=== PATIENT | female | born 1990 | race Caucasian/White ===

== ENCOUNTER 2021-04-27 20:21 | Emergency (ER) | payer MEDICAID ==
[2021-04-27 20:39] VITALS: BP 123/87; PULSE 60
[2021-04-27] MEDS ORDERED: HYDROmorphone 0.5 MG/0.5 ML Syringe IM ONE (20:58)
--- NOTE | 2021-04-27 21:20 | EDM.PDOC ---
ED HPI GENERAL MEDICAL PROBLEM - General Chief Complaint: Upper Extremity Injury/Pain Stated Complaint: RT HAND INJURY Time Seen by Provider: 04/27/21 20:30 Source of Information: Reports: Patient, RN Notes Reviewed History Limitations: Reports: No Limitations - History of Present Illness INITIAL COMMENTS - FREE TEXT/NARRATIVE: Patient is a 30-year-old female who presents to the ER for a right hand injury. States she was told some bad news from her children, so she punched a locker. This resulted in right lateral hand pain. Looks to be over the fourth and fifth MCP mainly. There is some bruising and swelling noted to this area. She states this is where it is painful. Able to move her fingers in all range of motion without difficulty. Also states she has a prior injury, to what she thought was the third MCP, and "had to set her own finger" few weeks ago. Patient has not been given any sort of Tylenol ibuprofen for pain management. [facility] Patient denies any other sick-like symptoms, fever/chills, cough/shortness of breath, nausea/vomiting/diarrhea. Right Hand Pain Score (Numeric/FACES): 8 - Related Data Allergies Allergy/AdvReac Type Severity Reaction Status Date / Time No Known Allergies Allergy Verified 12/19/14 10:10 Home Meds: Home Meds Hydrocodone/Acetaminophen [HYDROcodone-Acetaminophen 5-325 MG] 1 each PO Q6H PRN #20 tablet 04/27/21 [Rx] QUEtiapine [SEROquel] 25 mg PO DAILY 04/27/21 [History] QUEtiapine [SEROquel] 50 mg PO BEDTIME 04/27/21 [History] Sertraline [Zoloft] 50 mg PO DAILY 04/27/21 [History] busPIRone [Buspar] 15 mg PO DAILY 04/27/21 [History] Past Medical History - Past Health History Medical/Surgical History: Denies Medical/Surgical History AUDITOR/QUALITY History: Reports: Psychiatric History: Reports: Anxiety Other Psychiatric History: off prozac since 2013 doing well - Infectious Disease History Infectious Disease History: Reports: Hepatitis C - Past Surgical History Female Surgical History: Reports: Section Social & Family History - Tobacco Use Tobacco Use Status *Q: Unknown Ever Used Tobacco Review of Systems - Review of Systems Review Of Systems: Comprehensive ROS is negative, except as noted in HPI. ED EXAM, GENERAL - Physical Exam Exam: See Below Exam Limited By: No Limitations General Appearance: Alert, WD/WN, No Apparent Distress Respiratory/Chest: No Respiratory Distress, Lungs Clear, Normal Breath Sounds, No Accessory Muscle Use, Chest Non-Tender Cardiovascular: Normal Peripheral Pulses, Regular Rate, Rhythm, No Edema Peripheral Pulses: 2+: Radial (L), Radial (R) Extremities: Normal Range of Motion, Normal Capillary Refill Neurological: Alert, Oriented, Normal Cognition, No Motor/Sensory Deficits Psychiatric: Normal Affect, Normal Mood Skin Exam: Warm, Dry, Intact, No Rash, Ecchymosis (To right fourth and fifth MCP, there is some swelling about this area as well.) ED TRAUMA EXTREMITY PROCEDURES - Splinting Right Upper Extremity Splint Site: right wrist/hand Pre-Procedure NV Status: Normal Post-Procedure NV Status: Normal Splint Material: Fiberglass Splint Design: Gutter (ulnar gutter short arm) Applied & Form Fitted By: Provider, Nurse Provider Post-Splint Application NV Check: NV Status Normal, Good Position Complications: No Course - Vital Signs Last Recorded V/S: Last Vital Signs Temp 98.5 F 04/27/21 20:31 Pulse 60 04/27/21 20:31 Resp 15 04/27/21 20:31 BP 123/87 04/27/21 20:31 Pulse Ox 100 04/27/21 20:31 - Orders/Labs/Meds Orders: Active Orders 24 hr Category Date Time Status Hand Comp Min 3V Rt [CR] Stat Exams 04/27/21 20:40 Ordered Meds: Medications Discontinued Medications Generic Name Dose Route Start Last Admin Trade Name Chadq PRN Reason Stop Dose Admin Hydromorphone HCl 0.5 mg 04/27/21 20:58 04/27/21 21:06 Hydromorphone 0.5 Mg/0.5 Ml Syringe IM 04/27/21 20:59 0.5 mg ONETIME ONE Administration - Re-Assessments/Exams Free Text/Narrative Re-Assessment/Exam: 04/27/21 21:02 Patient presents to the ER for her right hand injury, very suspicious for broken bone at this time. X-rays have been ordered. Patient will get Dilaudid for initial pain management. 04/27/21 21:34 Patient's x-rays do demonstrate 1/5 metacarpal fracture. This will likely heal well by itself we will go ahead and get this splinted up and have her follow-up with Dr. Garcia for ongoing management. Departure - Departure Time of Disposition: 21:34 Disposition: Home, Self-Care 01 Condition: Good Clinical Impression: Fracture of fifth metacarpal bone of right hand Qualifiers: Encounter type: initial encounter Fracture type: closed Metacarpal location: shaft Fracture alignment: nondisplaced Qualified Code(s): S62.356A - Nondisplaced fracture of shaft of fifth metacarpal bone, right hand, initial encounter for closed fracture - Discharge Information *PRESCRIPTION DRUG MONITORING PROGRAM REVIEWED*: No *COPY OF PRESCRIPTION DRUG MONITORING REPORT IN PATIENT MACARIO: No Prescriptions: Hydrocodone/Acetaminophen [HYDROcodone-Acetaminophen 5-325 MG] 1 each PO Q6H PRN #20 tablet PRN Reason: Pain Instructions: Metacarpal Fracture, [id number] Referrals: Yris Hdz MD [Primary Care Provider] - Forms: ED Department Discharge Additional Instructions: You have been evaluated in the ED for your right hand injury. Your x-ray demonstrated a fracture of your fifth metacarpal, your hand has been splinted for ongoing management. Please use ice as tolerated to the affected area. You may elevate the affected area to provide further relief from swelling. You may take Tylenol 500 mg or ibuprofen 600mg q6 hrs for pain relief. Please do so until you have a tolerable level of pain with activity. Do not exceed 4000mg Tylenol, Do not exceed 3200mg ibuprofen in a 24 hour time period. You were given a prescription for a strong pain medication, hydrocodone/acetaminophen 5/325 mg, please take 1 tab every 6 hours as needed for pain not relieved by Tylenol or ibuprofen alone. Please note this medication does contain Tylenol in it, so do not take more than 4000 mg in a 24- hour time span. These medications can be addictive, so please take as few as possible to achieve adequate pain control. These meds can also be quite constipating, recommend that you increase your oral fluid intake and take a stool softener like MiraLAX while taking these medications. Do not drive while taking this medication. This medication was prescribed to the [facility], you may go there tomorrow to fill this in take as directed. Please call Ortho for follow-up and further evaluation Dr. Garcia is our orthopedic surgeon, his office number is [phone]. Please call and set up an appointment as soon as possible for ongoing management. Please return to ED if your symptoms should change or worsen. Sepsis Event Note (ED) - Evaluation Sepsis Screening Result: No Definite Risk - Focused Exam Vital Signs: Vital Signs Temp Pulse Resp BP Pulse Ox 04/27/21 20:31 98.5 F 60 15 123/87 100 - My Orders Last 24 Hours: My Active Orders 04/27/21 20:40 Hand Comp Min 3V Rt [CR] Stat - Assessment/Plan Last 24 Hours: My Active Orders 04/27/21 20:40 Hand Comp Min 3V Rt [CR] Stat
--- NOTE | 2021-04-28 07:00 | CR ---
Right hand: 3 views of the right hand were obtained. Comparison: No prior hand study is available. Fracture is seen within the shaft of the fifth metacarpal with apex posterior angulation. Diffuse soft tissue swelling is also noted. Joint spaces are preserved. No additional fracture or other bony abnormality is appreciated. Impression: 1. Mildly angulated fracture within the shaft of the right fifth metacarpal. Adjacent soft tissue swelling is present. Diagnostic code #3
== END 2021-04-27 22:02 | disposition home or self-care (01) ==
LOC: JD.ED 20:21
DX: S62.356A Nondisplaced fracture of shaft of fifth metacarpal bone, right hand, initial encounter for closed fracture (principal); W22.09XA Striking against other stationary object, initial encounter
CPT/HCPCS: 29125; 73130; 96372; 99283; J1170

== ENCOUNTER 2022-01-29 14:22 | Emergency (ER) | payer MEDICAID ==
[2022-01-29 15:37] VITALS: BP 126/88; PULSE 99
[2022-01-29] MEDS ORDERED: Ketorolac 60 MG/2 ML SDV IM ONE (16:51)
== END 2022-01-29 17:32 | disposition home or self-care (01) ==
LOC: JD.ED 14:22
DX: S62.356A Nondisplaced fracture of shaft of fifth metacarpal bone, right hand, initial encounter for closed fracture (principal); W22.09XA Striking against other stationary object, initial encounter
CPT/HCPCS: 29125; 73130; 99283; J1885